=== PATIENT | male | born 2000 | race Hispanic/Latino ===

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

== ENCOUNTER 2022-09-09 15:41 | Emergency (ER) | payer SELFPAY ==
[~2022-09-09] VITALS: Ht 172.7 cm; Wt 83.9 kg
[2022-09-09 15:43] VITALS: O2SAT 98
[2022-09-09] MEDS ORDERED: FLUORESCEIN SOD(OPTH) 1 MG STRP OP ONE (16:00)
[2022-09-09] MEDS ORDERED: FLUORESCEIN SOD(OPTH) 1 MG STRP ONE (16:03)
[2022-09-09] MEDS ORDERED: ULTRAM 50MG50 MG PO (16:24)
[2022-09-09] MEDS ORDERED: CEPHALEXIN500 MG PO (16:24)
== END 2022-09-09 16:30 | disposition home or self-care (01) ==
LOC: FSED 15:57
DX: H57.11 Ocular pain, right eye (principal); H16.8 Other keratitis
CPT/HCPCS: 99284

== ENCOUNTER 2024-07-23 08:56 | Emergency (ER) | payer OTHER ==
[~2024-07-23] VITALS: Ht 172.7 cm; Wt 81.4 kg
[~2024-07-23 08:56] MED LIST: CEPHALEXIN500 MG PO; ULTRAM 50MG50 MG PO
[2024-07-23 09:00] VITALS: PULSE 71; RESP 18; TEMP 97.9; O2SAT 98
[2024-07-23] MEDS: IBUPROFEN 600 MG TAB PO STA (09:50)
== END 2024-07-23 10:23 | disposition home or self-care (01) ==
LOC: FSED 09:01
DX: M25.552 Pain in left hip (principal); S60.512A Abrasion of left hand, initial encounter; V23.49XA Other motorcycle driver injured in collision with car, pick-up truck or van in traffic accident, initial encounter; Y92.488 Other paved roadways as the place of occurrence of the external cause
CPT/HCPCS: 99284